=== PATIENT | male | born 1985 | race Caucasian/White ===

== ENCOUNTER 2018-12-31 00:50 | Emergency (ER) | payer OTHER ==
[2018-12-31] MEDS ORDERED: HYDROcodone/Acetaminophen 10/325 mg Tablet ONE (01:11)
[2018-12-31] MEDS ORDERED: Ketorolac Tromethamine 30 MG/ML VIAL ONE (01:11)
== END 2018-12-31 01:50 | disposition home or self-care (01) ==
LOC: BURERS 00:50
DX: M54.5 Low back pain (principal)
CPT/HCPCS: 96372; J1885

== ENCOUNTER 2021-07-24 10:33 | Emergency (ER) | payer OTHER ==
[2021-07-24] MEDS ORDERED: Ketorolac Tromethamine 60 MG/2 ML VIAL ONE (11:02)
== END 2021-07-24 11:07 | disposition home or self-care (01) ==
LOC: BURERS 10:33
DX: M54.5 Low back pain (principal)
CPT/HCPCS: 96372; 99283; J1885

== ENCOUNTER 2025-08-02 16:10 | Emergency (ER) | payer OTHER ==
[2025-08-02] MEDS ORDERED: Orphenadrine Citrate 60 MG/2 ML VIAL ONE (17:18)
[2025-08-02] MEDS ORDERED: HYDROcodone/Acetaminophen 5/325 mg Tablet ONE (17:18)
== END 2025-08-02 18:29 | disposition home or self-care (01) ==
LOC: BURERS 16:10
DX: S93.401A Sprain of unspecified ligament of right ankle, initial encounter (principal); F17.290 Nicotine dependence, other tobacco product, uncomplicated; X58.XXXA Exposure to other specified factors, initial encounter
CPT/HCPCS: 96372; 99283; J1885; J2360